=== PATIENT | male | born 1970 | race Caucasian/White ===

== ENCOUNTER 2017-10-04 01:32 | Emergency (ER) | payer MEDICARE ==
[~2017-10-04] VITALS: Ht 188 cm; Wt 88.9 kg
== END 2017-10-04 04:35 | disposition home or self-care (01) ==
LOC: ED 01:32
DX: R10.33 Periumbilical pain (principal)
CPT/HCPCS: 74177; 80053; 81001; 83690; 85025; 96374; 99284; Q9967